=== PATIENT | male | born 1975 | race Caucasian/White ===

== ENCOUNTER 2020-08-23 19:22 | Emergency (ER) | payer SELFPAY ==
[2020-08-23 19:30] VITALS: BP 152/94; PULSE 88; RESP 17; O2SAT 98; BMI 31.0
--- NOTE | 2020-08-23 20:26 | ED_ITS ---
HPI - Extremity Problem General Chief complaint: Extremity Problem,Nontraumatic Stated complaint: pain in both arms Time Seen by Provider: 08/23/20 20:09 Source: patient Mode of arrival: Ambulatory Limitations: no limitations History of Present Illness HPI Narrative: Patient is a 44-year-old male history of bilateral carpal tunnel. 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 He has wrist scars and elevate his arms at night to sleep. He takes a 1000 mg of Tylenol along with 800 mg of ibuprofen and gabapentin. He has had increased pain over the last 2 days. He has been unable to sleep despite Benadryl and melatonin. He has been wearing his wrist guards at night and during the day. He has contacted his doctors in [place] and fortunately are unable to write him for anything stronger for pain. He has numbness and tingling in his median nerve distribution bilaterally. MD Complaint: extremity pain Related Data Previous Rx's Medication Instructions Recorded hydrocodone-acetaminophen [[place]] 1 tab PO Q6H PRN #10 tab 08/23/20 Allergies Allergy/AdvReac Type Severity Reaction Status Date / Time amoxicillin Allergy Rash Verified 08/23/20 20:01 tramadol [From Ultram] Allergy Verified 08/23/20 20:01 Review of Systems Review of Systems Narrative: GENERAL: Denies chills,fever HEENT: Denies throat pain RESPIRATORY: Denies dyspnea, cough, wheezing CARDIOVASCULAR: Denies chest pain, palpitations GASTROINTESTINAL: Denies nausea, vomiting MUSCULOSKELETAL: See HPI SKIN: No rash, no laceration, no pruritus NEUROLOGIC: Denies weakness, dizziness, headache, numbness 8 point review of systems is negative except for those stated above and HPI Patient History Medical History Carpal tunnel syndrome Social History Smoking Status: Never smoker Smoking Status: Never smoker alcohol intake frequency: holidays/special occasions only Substance Use Type: does not use Exam Initial Vital Signs Initial Vital Signs: Vital Signs Pulse Rate 88 08/23/20 19:30 Respiratory Rate 17 08/23/20 19:30 Blood Pressure 152/94 H 08/23/20 19:30 Pulse Oximetry 98 08/23/20 19:30 GENERAL: Pacing room appears to be in severe pain CARDIOVASCULAR: peripheral pulses in tact, cap refill <2 sec RESPIRATORY: No respiratory distress, speaks in full sentences without difficulty EXTREMITIES: Normal range of motion, no clubbing or edema. Neurovascularly intact Peripheral pulses are intact numbness and tingling median nerve bilaterally no swelling of the extremities NEUROLOGICAL: Cranial nerves II through XII grossly intact. Normal gait and speech. SKIN: Warm, dry, no petechiae, no rashes or lesions. Course Orders Ordered: Discontinued Medications Hydrocodone Bitart/Acetaminophen (Hydrocodone/Acet 5/325 Prepack) [facility] Stop: 08/23/20 20:27 Last Admin: 08/23/20 20:42 Dose: 1 bottle Documented by: FAVIOLA Vital Signs Vital signs: Vital Signs - 8 hr 08/23/20 19:30 Pulse Rate 88 Respiratory Rate 17 Blood Pressure 152/94 H Pulse Oximetry 98 Discharge Plan Departure Patient Disposition: Home Clinical Impression: Carpal tunnel syndrome Qualifiers: Laterality: bilateral Qualified Code(s): G56.03 - Carpal tunnel syndrome, bilateral upper limbs Instructions: Carpal Tunnel Syndrome (Alternative Therapy), Carpal Tunnel Syndrome Activity Restrictions/Additional Instructions: *You have been diagnosed with carpal tunnel bilaterally *What to do: You definitely need surgery to relieve your symptoms. Continue to wear brace elevate ice. *Continue to take medications as directed Tylenol 1000 mg every 6 hours (while taking [place] I recommend 1000 mg every 8 hours-do not combine with the [place]) Ibuprofen 800 mg every 8 hours [place] 1 tablet every 6 hours if needed for severe pain *Follow up with your primary care provider in 2-3 days *Return to ER if you should have weakness numbness tingling or any new, worsening or concerning symptoms CONTROLLED SUBSTANCE DISCHARGE (Narcotoic/benzodiazepine/Flexeril/Phenergan) 1. You have been prescribed narcotic medications, it does have acetaminophen/Tylenol/paracetamol in it so do not take extra Tylenol or Tylenol containing products TRAMADOL DOES NOT CONTAIN TYLENOL 2. Please understand that we cannot provide further refills of narcotics, benzodiazepines or controlled substances through the ED and her pain management will need to be through your provider. 3. While on these medications you cannot drive or operate heavy machinery. 4. You cannot sign legal documents or perform any duties such as this. 5. As long as you're taking opiate pain medications he should also be taking a stool softener such as Colace, Dulcolax, MiraLAX or prune juice, to help avoid constipation. Prescriptions: New hydrocodone-acetaminophen [[place]] 5-325 mg tablet 1 tab PO Q6H PRN (Reason: pain) Qty: 10 RF: 0
[2020-08-23] MEDS: HYDROCODONE/ACET 5/325 PREPACK 1 BOTTLE MISC (20:42)
== END 2020-08-23 20:45 | disposition home or self-care (01) ==
PROVIDERS: Emergency Provider Emergency Medicine
DX: G56.03 Carpal tunnel syndrome, bilateral upper limbs (principal)
CPT/HCPCS: 99281; 99283